=== PATIENT | female | born 1960 | race African-American/Black ===

== ENCOUNTER → 2017-07-09 | Outpatient (CLI) | payer OTHER ==
--- NOTE | 2017-07-10 12:22 | Diagnostic Imaging Report ---
PROCEDURE: HRCT CHEST WITHOUT CONTRAST CT scan of the chest WITHOUT intravenous contrast, using HRCT protocol. TECHNIQUE: The chest was scanned utilizing a multidetector helical scanner from the apex to the level of the adrenal glands. Additional scans were obtained during inspiration, expiration, and in the prone position. No IV contrast was administered. Coronal and sagittal multiplanar reformations were obtained. COMPARISON: None. INDICATIONS: HRCT FINDINGS: Lines/tubes: None. Lungs and Airways: Peripheral consolidations which are diffuse through all the lung lobes, but with an upper lobe predominance. Some of these have a peribronchovascular distribution, for example in the apices (for example on series 2 image 98). Nodularity/thickening is noted in the fissures (for example on sagittal image 75 in the left major fissure and sagittal image 26 in the right major fissure). Scattered areas of traction bronchiectasis are noted. Suboptimal expiration on expiratory phase limits evaluation for air-trapping. Suture in the right lower lobe and right apex suggest prior lung resections. Pleura: No pleural effusions or pneumothorax. Heart and mediastinum: The thyroid gland is normal. Mildly enlarged mediastinal nodes measure up to 1.2 cm (series 3 image 34 in the precarinal station). Limited evaluation for hilar adenopathy in the absence of IV contrast. Bilateral hilar fullness may be related to hilar nodes, or prominent pulmonary arteries. No significant axillary lymphadenopathy is seen. The heart is within normal limits. Trace pericardial effusion. Main pulmonary artery measures 2.4 cm and ascending aorta measures 2.7 cm in diameter, within normal limits. Soft tissues: Nodular densities in the right breast measure up to 1.5 cm (series 3 image 69). Abdomen: Right hepatic 1.6 cm cyst. Otherwise, limited views of the upper abdomen are unremarakble. Bones: Healed fracture deformity of the right sixth rib and areas of ankylosis of the right fifth and sixth ribs which may be related to thoracotomy. Old healed left fifth rib fracture. IMPRESSION: 1. Fibrotic lung disease with an upper lobe predominance which may suggest sarcoidosis or inhalational diseases such as silicosis. Other interstitial lung diseases such as fibrotic NSIP remain in the differential. 2. Nodular densities in the right breast. Recommend correlation with mammogram. Dictated by: Jarrett Virgen M.D. on 07/10/2017 at 12:21 Electronically approved by: Jarrett Virgen M.D. on 07/10/2017 at 12:21
== END ==
LOC: CT 16:33
PROVIDERS: ATTEND Internal Medicine
DX: R06.02 Shortness of breath (principal)
CPT/HCPCS: 71250

== ENCOUNTER → 2018-02-01 | Outpatient (CLI) | payer OTHER ==
--- NOTE | 2018-02-01 16:43 | Diagnostic Imaging Report ---
EXAMINATION: CT scan of the chest without contrast. TECHNIQUE: Spiral CT images of the chest were performed from the lung apices to the level of the adrenal glands. No intravenous contrast was administered per referring physician request. Coronal and sagittal reformatted images were obtained. Images were performed in inspiratory and expiratory phases, as well as the prone position per interstitial lung disease protocol. COMPARISON: None. CLINICAL HISTORY:Radiographic pulmonary fibrosis DISCUSSION: ABSENCE OF INTRAVENOUS CONTRAST DECREASES SENSITIVITY FOR DETECTION OF FOCAL LESIONS AND VASCULAR PATHOLOGY. LINES/TUBES: None. LUNGS AND AIRWAYS: As before, there are multifocal, peripherally predominant consolidations with associated traction bronchiectasis and honeycombing. Again, predilection in the upper lobes and right lower lobe. Intermixed with interlobular septal thickening, peribronchial vascular nodularity, and reticulation which has minimally progressed relative to 07/09/2017. Radiopaque suture material along the right lower lobe and right apex is unchanged. PLEURA: No pneumothorax or pleural effusions. HEART AND MEDIASTINUM: Thyroid gland appears normal. Mildly enlarged mediastinal lymph nodes are grossly unchanged. Main pulmonary artery and ascending thoracic aorta are of normal caliber. Borderline cardiomegaly. LYMPH NODES: As above. No axillary lymphadenopathy. ABDOMEN: Unchanged cyst in the right hepatic lobe. Subcentimeter hypoattenuating lesion in hepatic segment 4 is also unchanged, too small to further characterize though likely represent an additional small cyst. A similar low-attenuation lesion in hepatic segment 6 has average internal attenuation less than 20 Hounsfield units and measures 1.6 cm. Visualized portions of the spleen, adrenals, pancreas, and kidneys are unremarkable. BONES AND SOFT TISSUES: No osseous destructive lesions. Right posterior sixth rib defect. Partial fusion of the anterior right fifth and sixth ribs. Right breast nodules are grossly unchanged. IMPRESSION: Minimal interval CT progression of fibrotic lung changes relative to 07/09/2017. Right breast nodular densities are again noted and should be correlated with mammography. Signed by: Dr. Steve Lay M.D. on 02/01/2018 4:40 PM
== END ==
LOC: CT 15:00
PROVIDERS: ATTEND Internal Medicine Pulmonary Disease
DX: R06.02 Shortness of breath (principal); J84.112 Idiopathic pulmonary fibrosis
CPT/HCPCS: 71250